=== PATIENT | female | born 1960 ===

== ENCOUNTER 2024-06-04 14:43 | Emergency (ER) | payer BC, OTHER ==
[~2024-06-04] VITALS: Ht 162.6 cm; Wt 67.1 kg
[2024-06-04 15:35] LABS: CORONAVIRUS COVID-19 AG Negative (NEGATIVE); INFLUENZA A AG Negative (NEGATIVE); INFLUENZA B AG Negative (NEGATIVE)
[2024-06-04] MEDS ORDERED: Prednisone20 MG PO (16:55)
[2024-06-04] MEDS ORDERED: BENZ100A PO (16:55)
[2024-06-04 17:05] VITALS: BP 125/68
== END 2024-06-04 17:10 | disposition home or self-care (01) ==
LOC: ER 14:43
PROVIDERS: Physician Assistant
DX: J40 Bronchitis, not specified as acute or chronic (principal); F17.210 Nicotine dependence, cigarettes, uncomplicated; Z88.0 Allergy status to penicillin; Z88.1 Allergy status to other antibiotic agents; Z88.5 Allergy status to narcotic agent
CPT/HCPCS: 71046; 87428-QW; 99283-25